=== PATIENT | male | born 1940 | race Caucasian/White ===

== ENCOUNTER 2022-11-30 05:34 | Day surgery (SDC) | payer MEDICARE, SELFPAY ==
[2022-11-29 09:33] VITALS: BMI 25.8
[2022-11-30] VITALS (9 sets, daily range): BP systolic 144–168; BP diastolic 69–80; PULSE 63–78; RESP 16; TEMP 36.1–36.3; O2SAT 90–97
[2022-11-30] MEDS: sodium chloride 0.9% 1,000 ML 30 ML IV (06:19)
--- NOTE | 2022-11-30 06:48 | W.PM.OPSUD ---
Surgery/Procedure H&P Update DATE OF PROCEDURE: November 30, 2022 DATE H&P PERFORMED: 11/12/22 PRIMARY INDICATION FOR PROCEDURE: Severe mixed hearing loss, right ear PLANNED PROCEDURE: Operation Date: 11/30/22 07:00 Proposed Procedures p [employer] [id number],H90.6(Right) - Franc Garcia MD
--- NOTE | 2022-11-30 06:48 | ANES.PREANE2 ---
Pre-Anesthetic Assessment Height/Weight: Height 1.78 m Weight 81.647 kg Temp Pulse Resp BP Pulse Ox O2 Del Method 97 F L 78 16 144/80 96 Room Air 11/30/22 05:51 11/30/22 05:51 11/30/22 05:51 11/30/22 05:51 11/30/22 05:51 11/30/22 06:06 Operation Date: 11/30/22 07:00 Proposed Procedures p [employer] [id number],H90.6(Right) - Franc Garcia MD Familial anesthetic complications: None Was Beta Anup taken within 24 hours: N/A Was Clonidine taken within 24 hours: N/A Last intake: Intake Last Liquid Date 11/29/22 Last Liquid Time 02:00 Last Solid Date 11/29/22 Last Solid Time 19:00 Social Tobacco and No alcohol Exam alert, oriented x 3, clear to auscultation bilaterally and regular rate & rhythm Airway Mallampati: Class II Dentition: false CV/HEM Coronary Artery Disease (stents > 1 year), Hypertension and Peripheral Vascular Disease (AAA stent) Metabolic Hyperlipidemia Anesthetic Plan ASA status: 3 Anesthesia: General Risk of > 500 ml blood loss (7ml/kg in children): No Medications/Allergies Home Medications Medication Instructions Recorded Confirmed Last Taken Type aspirin 81 mg capsule 81 mg PO DAILY 11/29/22 11/29/22 11/27/22 History diltiazem HCl 180 mg 180 mg PO DAILY 11/29/22 11/29/22 11/30/22 History capsule,extended release 24 hr isosorbide mononitrate 30 mg 30 mg PO DAILY 11/29/22 11/29/22 11/30/22 History tablet,extended release 24 hr lisinopril 20 mg tablet 20 mg PO DAILY 11/29/22 11/29/22 11/30/22 History paroxetine HCl 30 mg tablet 30 mg PO DAILY 11/29/22 11/29/22 11/30/22 History rivaroxaban 20 mg tablet (Xarelto) 20 mg PO DAILY 11/29/22 11/29/22 11/27/22 History simvastatin 40 mg tablet 40 mg PO QPM 11/29/22 11/29/22 11/30/22 History Allergies Allergy/AdvReac Type Severity Reaction Status Date / Time Iodinated Contrast Media Allergy ALGY-Rash Verified 11/29/22 09:25 morphine Allergy ADR-Vomitin Verified 11/29/22 09:18 g Current Medications Generic Name Dose Route Start Last Admin Trade Name Freq PRN Reason Stop Dose Admin Sodium Chloride 1,000 mls @ 30 mls/hr 11/30/22 06:00 11/30/22 06:19 Sodium Chloride 0.9% IV 12/01/22 05:59 30 mls/hr .Q24H SANDRA Administration Data Anesthesia Cardiac Studies: No Data to Display
--- NOTE | 2022-11-30 06:49 | ECG_ITS ---
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 Measurements Intervals Rembert Rate: 69 P: 241 ME: 161 QRS: 147 QRSD: 94 T: 158 QT: 379 QTc: 407 Interpretive Statements ECTOPIC ATRIAL RHYTHM POSSIBLE LEFT ATRIAL ENLARGEMENT [-0.1mV P-WAVE IN V1/V2] LEFT POSTERIOR FASCICULAR BLOCK [QRS AXIS > 109, INFERIOR Q] MODERATE ST DEPRESSION [0.05+ mV ST DEPRESSION] No previous ECG available for comparison Electronically Signed On 11-30-2022 23:55:27 CDT by Neil Randhawa M.D. [id number]
[2022-11-30 07:14] LABS: Basophils # 0.1 10^3/uL (0.0-0.1); Basophils % 0.7 %; Eosinophils # 0.4 10^3/uL (0.0-0.8); Eosinophils % 5.4 %; Hematocrit 40.1 % (37-53); Lymphocytes # 1.6 10^3/uL (0.8-4.8); Lymphocytes % 19.7 %; Mean Corpuscular HGB Conc 32.9 g/dL (30-55); Mean Corpuscular Hemoglobin 29.8 pg (27-33); Mean Corpuscular Volume 90.5 fl (82-101); Mean Platelet Volume 9.6 fL (7.4-10.4); Monocytes # 0.8 10^3/uL (0.2-0.9); Monocytes % 9.2 %; Neutrophils % 64.8 %; Nucleated Red Blood Cells % 0 %; Platelet Count 166 10^3/cmm (157-399); Red Blood Count 4.43 10^6/uL (3.85-5.65); Red Cell Distribution Width 12.6 % (12.1-15.1); White Blood Count 8.18 10^3/uL (3.29-11.43)
[2022-11-30] MEDS: ceFAZolin 2,000 MG in sodium chloride 0.9% (plus) 50 ML 100 MG IV (07:15)
[2022-11-30 07:28] LABS: Blood Urea Nitrogen 21 mg/dL (8-23); Calcium 8.1 mg/dL (8.5-10.5); Carbon Dioxide 26 mmol/L (22-29); Chloride 107 mmol/L (98-107); Glucose 103 mg/dL (65-115); Osmolality Calculated 291 mOsm/kg (285-295); Sodium 139 mmol/L (136-145)
[2022-11-30 07:29] LABS: Anion Gap 10.1 (5-19); Potassium 4.1 mmol/L (3.5-5.1)
[2022-11-30] MEDS: lidocaine-epi 1% 20 mL INJ INJECTION (07:30)
[2022-11-30] MEDS: neomycin-poly-bacitracin oint 28 gm 1 APPLIC TOPICAL (08:19)
--- NOTE | 2022-11-30 08:49 | PM.OP ---
Operative Report Date of procedure: November 30, 2022 Pre-op diagnosis: Severe mixed hearing loss, right ear Post-op diagnosis: same Post-op findings: Normal right post auricular exam Procedure done: Right ear bone anchored hearing aid implantation Implants: Bone anchored hearing aid implant Pathology: none sent Pathology: None Surgeon: Franc Garcia Storage Garage Attendant: Sim Gamboa Anesthesia: General Estimated blood loss (mL): 5 IV fluids (mL): 500 Complications: None Findings: Normal right post auricular exam Condition: stable Disposition: PACU Brief History: 82 yo wm with a h/o severe mixed hearing loss AD. The patient desires surgical therapy. Procedure: The patient was identified in the preoperative holding area and was taken to the operating room and placed on the operative table in the supine position. Anesthesia was obtained with general endotracheal anesthesia and the table was then turned 180 degrees. The patient's head was turned to the left and the right postauricular area was shaved and prepped with Betadine. The appropriate implant site was marked out with a ruler and the surgical indicator and the skin thickness was measured with a needle. The appropriate implant was chosen which was a #12 and the incision was made with a 4 mm punch biopsy blade. Dissection proceeded down to the periosteum which was removed with a periosteal elevator. The operating microscope was then brought into the field and the surgical drill with the attached depth limiter was used to drill a 3 mm hole in the outer table of the mastoid bone. The depth of the hole was checked with the microscope and the elevator and was found to have adequate bone at depth, so the hole was deepened to 4 mm. The hole was then enlarged with the larger drill bit while copiously irrigating. At this point the implant was placed in the wound and was screwed in place to 50 N centimeters of torque. The implant was secured with a manual wrench. At this point a sterile dressing was placed on the wound and the procedure was terminated. Control of the patient was then returned to anesthesia where he underwent an uneventful reversal of anesthesia and extubation and the patient was taken to recovery in stable condition. There were no operative or anesthetic complications.
[2022-11-30] MEDS: HYDROcodone-acetaminophen 5-325 mg Tablet 1 TAB PO (09:43)
--- NOTE | 2022-11-30 10:10 | ANE.PACU2 ---
Inpatient post-anesthesia follow up: Airway intact: Yes Vital signs: Temperature 97.4 F Pulse Rate 69 Respiratory Rate 16 Blood Pressure 153/69 Pulse Oximetry 94 Oxygen Delivery Me thod Room Air Oxygen Flow Rate 4 Fraction of Inspir ed Oxygen Hydration adequate: Yes Nausea and vomiting: No Pain level: 1 Mental status: Baseline
== END 2022-11-30 10:14 | disposition home or self-care (01) ==
PROVIDERS: Anesthesiology; Visit Provider Specialist
PROC: (CPT 69710; principal; 2022-11-30 07:00)
DX: H90.71 Mixed conductive and sensorineural hearing loss, unilateral, right ear, with unrestricted hearing on the contralateral side (principal); I25.10 Atherosclerotic heart disease of native coronary artery without angina pectoris; Z95.5 Presence of coronary angioplasty implant and graft; I10 Essential (primary) hypertension; E78.5 Hyperlipidemia, unspecified
CPT/HCPCS: 69714; 80048; 85025; 93005; J0690; J2371; J2405; J2704; J3010; J7030; L8614; L8690